=== PATIENT | female | born 1970 | race Two or more races ===

== ENCOUNTER 2021-12-19 09:08 | Inpatient (IN) | payer OTHER ==
[~2021-12-19] VITALS: Ht 157.5 cm; Wt 92.7 kg
[2021-12-19] VITALS (11 sets, daily range): BP systolic 126–156; BP diastolic 66–85
[~2021-12-19 09:08] MED LIST: BUSP15TA PO; CALC500T30 PO; CLONAZEPAM1 MG PO; DESV25TA7 PO; GABA300C18 PO; LISD10CA PO; LISI-130 PO; OMEP20CA16 PO; QUET100T2 PO
--- NOTE | 2021-12-19 09:29 | PHYS DOC ---
Past Medical History Past Medical History: Diabetes-Type II, GERD, Hypertension Additional Past Medical Histor: OSTEOARTHRITIS Past Surgical History: Appendectomy, Cholecystectomy, Tubal ligation General Adult EDM: Chief Complaint: CHEST PAIN HPI: HPI: Patient is a 51-year-old female that presents today with chest pain. Patient states the chest pain started approximately 2 weeks ago, but this morning she woke up around 730 with severe chest pain in the left chest wall that radiated to her left arm, she also had some nausea with this pain. Patient states she was seen by her primary care physician on Wednesday for evaluation of this chest pain they made some adjustments to her diabetes medication regime and said that they would follow-up with her later on if she still continue to have pain. Patient does have a past medical history of hypertension and diabetes. She does have a family history of heart disease with her mother and father both having coronary artery disease. Patient states she did have Covid approximately 1 month ago and since that time has still not been feeling well at all. Review of Systems: Review of Systems: Constitutional: Denies fever or chills. [] Eyes: Denies change in visual acuity. [] HENT: Denies nasal congestion or sore throat. [] Respiratory: shortness of breath, [] Cardiovascular: chest pain or denies edema. [] GI: nausea Denies abdominal pain, vomiting, bloody stools or diarrhea. [] : Denies dysuria. [] Musculoskeletal: Denies back pain or joint pain. [] Integument: Denies rash. [] Neurologic: Denies headache, focal weakness or sensory changes. [] Endocrine: Denies polyuria or polydipsia. [] Lymphatic: Denies swollen glands. [] Psychiatric: Denies depression or anxiety. [] Heart Score: C/O Chest Pain: Yes HEART Score for Chest Pain: HEART Score for Chest Pain Response (Comments) Value History Moderately Suspicious 1 ECG Normal 0 Age >45 - < 65 1 Risk Factors >3 Risk Factors or Hx CAD 2 Troponin < Normal Limit 0 Total 4 Risk Factors: Risk Factors: DM, Current or recent (<one month) smoker, HTN, HLP, family history of CAD, obesity. Risk Scores: Score 0 - 3: 2.5% MACE over next 6 weeks - Discharge Home Score 4 - 6: 20.3% MACE over next 6 weeks - Admit for Clinical Observation Score 7 - 10: 72.7% MACE over next 6 weeks - Early Invasive Strategies Current Medications: Current Medications Medications (Trade) Dose Ordered Sig/[facility] Start Time Stop Time Status Last Admin Dose Admin Aspirin (Aspirin Chewable) 324 mg 1X ONCE 12/19/21 09:30 12/19/21 09:31 UNV Morphine Sulfate (Morphine Sulfate) 2 mg PRN Q15MIN PRN 12/19/21 09:30 12/20/21 09:29 UNV Nitroglycerin (Nitrostat) 0.4 mg PRN Q5MIN PRN 12/19/21 09:30 12/20/21 09:29 UNV Allergies: Allergies: Allergies Coded Allergies Type Severity Reaction Last Updated Verified amoxicillin Allergy Intermediate hives 11/10/16 Yes bacitracin Allergy Intermediate 11/10/16 Yes neomycin Allergy Intermediate 11/10/16 Yes polymyxin B Allergy Intermediate 11/10/16 Yes prochlorperazine Allergy Intermediate dystonia 11/10/16 Yes Physical Exam: PE: Constitutional: Well developed, well nourished, mild distress, non-toxic appearance. [] HENT: Normocephalic, atraumatic, bilateral external ears normal, oropharynx moist, no oral exudates, nose normal. [] Eyes: PERRLA, EOMI, conjunctiva normal, no discharge. [] Neck: Normal range of motion, no tenderness, supple, no stridor. [] Cardiovascular:Heart rate regular rhythm, no murmur [] Lungs & Thorax: Bilateral breath sounds clear to auscultation [] Abdomen: Bowel sounds normal, soft, no tenderness, no masses, no pulsatile masses. [] Skin: Warm, dry, no erythema, no rash. [] Back: No tenderness, no CVA tenderness. [] Extremities: No tenderness, no cyanosis, no clubbing, ROM intact, no edema. [] Neurologic: Alert and oriented X 3, normal motor function, normal sensory function, no focal deficits noted. [] Psychologic: Affect normal, judgement normal, mood normal. [] Current Patient Data: Labs: Laboratory Tests Test 12/19/21 09:38 12/19/21 09:46 White Blood Count 6.6 x10^3/uL Red Blood Count 4.43 x10^6/uL Hemoglobin 12.5 g/dL Hematocrit 37.5 % Mean Corpuscular Volume 85 fL Mean Corpuscular Hemoglobin 28 pg Mean Corpuscular Hemoglobin Concent 33 g/dL Red Cell Distribution Width 12.9 % Platelet Count 248 x10^3/uL Neutrophils (%) (Auto) 45 % Lymphocytes (%) (Auto) 42 % Monocytes (%) (Auto) 10 % Eosinophils (%) (Auto) 3 % Basophils (%) (Auto) 1 % Neutrophils # (Auto) 3.0 x10^3/uL Lymphocytes # (Auto) 2.8 x10^3/uL Monocytes # (Auto) 0.7 x10^3/uL Eosinophils # (Auto) 0.2 x10^3/uL Basophils # (Auto) 0.0 x10^3/uL Prothrombin Time 12.2 SEC Prothromb Time International Ratio 0.9 D-Dimer (Margot) 0.33 ug/mlFEU Sodium Level 141 mmol/L Potassium Level 3.7 mmol/L Chloride Level 102 mmol/L Carbon Dioxide Level 26 mmol/L Anion Gap 13 Blood Urea Nitrogen 15 mg/dL Creatinine 0.8 mg/dL Estimated GFR (Cockcroft-Gault) 76.2 BUN/Creatinine Ratio 19 Glucose Level 93 mg/dL Calcium Level 8.9 mg/dL Magnesium Level 1.9 mg/dL Total Bilirubin 0.6 mg/dL Aspartate Amino Transf (AST/SGOT) 17 U/L Alanine Aminotransferase (ALT/SGPT) 46 U/L Alkaline Phosphatase 83 U/L Troponin I High Sensitivity 6 ng/L [id number] Natriuretic Peptide 103 pg/mL Total Protein 7.7 g/dL Albumin 3.9 g/dL Albumin/Globulin Ratio 1.0 Lipase 104 U/L Glucose (Fingerstick) 93 mg/dL Current Medications Medications (Trade) Dose Ordered Sig/Arian Route PRN Reason Start Time Stop Time Status Last Admin Dose Admin Aspirin (Aspirin Chewable) 324 mg 1X ONCE PO 12/19/21 10:00 12/19/21 10:01 DC 12/19/21 09:36 Nitroglycerin (Nitrostat) 0.4 mg PRN Q5MIN PRN SL CP RATING > 1/10 12/19/21 09:30 12/20/21 09:29 12/19/21 10:01 Morphine Sulfate (Morphine Sulfate) 2 mg PRN Q15MIN PRN IV/SQ PAIN GREATER THAN 3/10 12/19/21 09:30 12/20/21 09:29 12/19/21 10:23 Sodium Chloride 1,000 ml @ 999 mls/hr 1X ONCE IV 12/19/21 10:15 12/19/21 11:15 12/19/21 10:06 Ondansetron HCl (Zofran) 4 mg 1X ONCE IVP 12/19/21 10:30 12/19/21 10:31 DC 12/19/21 10:23 Vital Signs: Vital Signs Date Time Temp Pulse Resp B/P (MAP) Pulse Ox O2 Delivery O2 Flow Rate FiO2 12/19/21 10:26 62 14 129/79 (96) 100 Room Air 12/19/21 10:23 18 99 Room Air 12/19/21 10:17 64 28 120/72 (88) 100 Room Air 12/19/21 10:06 72 16 107/59 (75) 97 Room Air 12/19/21 10:01 67 131/75 12/19/21 10:01 66 19 119/77 (91) 98 Room Air 12/19/21 09:56 70 19 131/75 (93) 96 Room Air 12/19/21 09:51 68 26 125/72 (89) 97 Room Air 12/19/21 09:47 78 22 132/81 (98) 97 Room Air 12/19/21 09:37 71 144/82 12/19/21 09:08 98.1 71 15 144/82 (102) 99 Room Air 98.1 Vital Signs Date Time Temp Pulse Resp B/P (MAP) Pulse Ox O2 Delivery O2 Flow Rate FiO2 12/19/21 09:08 98.1 71 15 144/82 (102) 99 Room Air 98.1 EKG: EK EKG done read by Dr. Beauchamp at 917 shows sinus rhythm at a rate of 170 no ectopy [place] interval of 146 ms QTC of 474 ms no STEMI [] Radiology/Procedures: Radiology/Procedures: REASON: chest pain PROCEDURE: PORTABLE CHEST 1V XR CHEST 1V History: Chest pain Comparison: None. Technique: AP radiograph of the chest. Findings: The lungs are adequately and symmetrically inflated. No airspace consolidation, pleural effusion or pneumothorax. The cardiomediastinal silhouette and pulmonary vasculature are within normal limits. No acute osseous abnormality. Soft tissues are unremarkable. Impression: 1. No acute cardiopulmonary process. Electronically signed by: Jono Rea MD (12/19/2021 9:46 AM) [id number] [] Course & Med Decision Making: Course & Med Decision Making Pertinent Labs and Imaging studies reviewed. (See chart for details) 1045 reviewed radiological and laboratory results with Dr. Gregory the hospitalist he is agreeable to admitting the patient with a consult to cardiology for further evaluation of the patient's chest pain. Patient states her pain is a 2 out of 10 at this time. Dragon Disclaimer: Dragon Disclaimer: This electronic medical record was generated, in whole or in part, using a voice recognition dictation system. Departure Departure Impression: Primary Impression: Chest pain Qualified Codes: R07.9 - Chest pain, unspecified Disposition: ADMITTED INPATIENT Admitting Physician: SHAKIRA Condition: STABLE Referrals: DALLAS CALLAWAY (PCP) LOI BRAR APRN Dec 19, 2021 09:29
[2021-12-19] MEDS ORDERED: MORPHINE SULFATE 2 MG/ML INJ. IV/SQ PRN (09:30)
[2021-12-19] MEDS: NITROGLYCERIN SUBLINGUAL 0.4 MG BOTTLE OF 25. SL PRN ×2 (09:37→10:01)
--- NOTE | 2021-12-19 09:48 | RAD ---
XR CHEST 1V History: Chest pain Comparison: None. Technique: AP radiograph of the chest. Findings: The lungs are adequately and symmetrically inflated. No airspace consolidation, pleural effusion or p neumothorax. The cardiomediastinal silhouette and pulmonary vasculature are within normal limits. No acute osseous abnormality. Soft tissues are unremarkable. Impression: 1. No acute cardiopulmonary process. Electronically signed by: Jono Rea MD (12/19/2021 9:46 AM) [id number]
[2021-12-19 09:59] LABS: BASO % 1 % (0-3); EOS # 0.2 x10^3/uL (0.0-0.7); EOS % 3 % (0-3); HEMATOCRIT 37.5 % (36.0-47.0); HEMOGLOBIN 12.5 g/dL (12.0-15.5); LYMPH # 2.8 x10^3/uL (1.0-4.8); LYMPH % 42 % (24-48); MEAN CORPUSCULAR HEMOGLOBIN 28 pg (25-35); MEAN CORPUSCULAR HGB CONC 33 g/dL (31-37); MEAN CORPUSCULAR VOLUME 85 fL (79-100); MONO # 0.7 x10^3/uL (0.0-1.1); MONO % 10 % (0-9); NEUT % 45 % (31-73); PLATELET COUNT 248 x10^3/uL (140-400); RED BLOOD COUNT 4.43 x10^6/uL (3.50-5.40); RED CELL DISTRIBUTION WIDTH 12.9 % (11.5-14.5); WHITE BLOOD COUNT 6.6 x10^3/uL (4.0-11.0)
[2021-12-19] MEDS ORDERED: ASPIRIN CHEWABLE 81 MG TABLET. PO ONE (10:00)
[2021-12-19 10:05] LABS: PROTHROMBIN TIME PATIENT 12.2 SEC (11.7-14.0)
[2021-12-19 10:13] LABS: CALCIUM 8.9 mg/dL (8.5-10.1); CREATININE 0.8 mg/dL (0.6-1.0); GFR 76.2; POTASSIUM 3.7 mmol/L (3.5-5.1)
[2021-12-19] MEDS ORDERED: IV NORMAL SALINE 1000ML BAG 1,000 ML IV ONE (10:15)
[2021-12-19 10:18] LABS: ALBUMIN 3.9 g/dL (3.4-5.0); MAGNESIUM 1.9 mg/dL (1.8-2.4); TOTAL BILIRUBIN 0.6 mg/dL (0.2-1.0); TOTAL PROTEIN 7.7 g/dL (6.4-8.2)
[2021-12-19] MEDS ORDERED: ONDANSETRON PF 4 MG/2 ML VIAL. IVP ONE (10:30)
[2021-12-19 10:38] LABS: D-DIMER 0.33 ug/mlFEU (0.00-0.50)
--- NOTE | 2021-12-19 10:57 | PDOC2 ---
ISABEL ERNANDEZ [employer] OPERATOR 12/19/21 1057: CARDIAC CONSULT DATE OF CONSULT Date of Consult DATE: 12/19/21 TIME: 10:54 REASON FOR CONSULT Reason for Consult: Chest pain REFERRING PHYSICIAN Referring Physician: Cori SOURCE Source: Chart review, Patient HISTORY OF PRESENT ILLNESS HISTORY OF PRESENT ILLNESS This is a pleasant 51 yo female admitted for complains of chest pain. Reports that her symptoms have been happening in the last week on and off and most painful at 7 describing it as squeezing left chest discomfort radiating to jaw and left arm. Has been having PHIPPS and has been having intermittent nausea. He started ASA at home. Denies any recent falls or injury. He did have covid-19 a month ago. No fever or chills. PAST MEDICAL HISTORY Cardiovascular: HTN Pulmonary: No pertinent hx CENTRAL NERVOUS SYSTEM: Other (No pertinent history) GI: GERD Heme/Onc: No pertinent hx Hepatobiliary: No pertinent hx Psych: No pertinent hx Rheumatologic: No pertinent hx Infectious disease: No pertinent hx Endocrine: Diabetes (2) Dermatology: No pertinent hx PAST SURGICAL HISTORY Past Surgical History: Appendectomy, Cholecystectomy, Tubal Ligation FAMILY HISTORY Family History: Coronary Artery Disease (father) SOCIAL HISTORY Smoke: Quit ALCOHOL: none Drugs: None Lives: with Family CURRENT MEDICATIONS CURRENT MEDICATIONS Current Medications Medications (Trade) Dose Ordered Sig/Arian Route PRN Reason Start Time Stop Time Status Last Admin Dose Admin Aspirin (Aspirin Chewable) 324 mg 1X ONCE PO 12/19/21 10:00 12/19/21 10:01 DC 12/19/21 09:36 Nitroglycerin (Nitrostat) 0.4 mg PRN Q5MIN PRN SL CP RATING > 1/10 12/19/21 09:30 12/20/21 09:29 12/19/21 10:01 Morphine Sulfate (Morphine Sulfate) 2 mg PRN Q15MIN PRN IV/SQ PAIN GREATER THAN 3/10 12/19/21 09:30 12/20/21 09:29 12/19/21 10:23 Sodium Chloride 1,000 ml @ 999 mls/hr 1X ONCE IV 12/19/21 10:15 12/19/21 11:15 12/19/21 10:06 Ondansetron HCl (Zofran) 4 mg 1X ONCE IVP 12/19/21 10:30 12/19/21 10:31 DC 12/19/21 10:23 ALLERGIES ALLERGIES: Coded Allergies: amoxicillin (Verified Allergy, Intermediate, hives, 11/10/16) bacitracin (Verified Allergy, Intermediate, 11/10/16) neomycin (Verified Allergy, Intermediate, 11/10/16) polymyxin B (Verified Allergy, Intermediate, 11/10/16) prochlorperazine (Verified Allergy, Intermediate, dystonia, 11/10/16) ROS Review of System 14 point ROS evaluated with pertinent positives noted per HPI PHYSICAL EXAM General: Alert, Oriented X3, Cooperative, No acute distress HEENT: Atraumatic, Mucous membr. moist/pink Lungs: Clear to auscultation, Normal air movement Heart: Regular rate (SR), Normal S1, Normal S2, No murmurs Abdomen: Soft, No tenderness Extremities: No cyanosis, No edema Skin: No breakdown, No significant lesion Neuro: Normal speech, Sensation intact Psych/Mental Status: Mental status NL, Mood NL MUSCULOSKELETAL: Full range of motion without pain VITALS/I&O VITALS/I&O: Vital Signs Date Time Temp Pulse Resp B/P (MAP) Pulse Ox O2 Delivery O2 Flow Rate FiO2 12/19/21 10:26 62 14 129/79 (96) 100 Room Air 12/19/21 09:08 98.1 98.1 LABS Lab: Laboratory Tests Test 12/19/21 09:38 12/19/21 09:46 White Blood Count 6.6 x10^3/uL (4.0-11.0) Red Blood Count 4.43 x10^6/uL (3.50-5.40) Hemoglobin 12.5 g/dL (12.0-15.5) Hematocrit 37.5 % (36.0-47.0) Mean Corpuscular Volume 85 fL (79-100) Mean Corpuscular Hemoglobin 28 pg (25-35) Mean Corpuscular Hemoglobin Concent 33 g/dL (31-37) Red Cell Distribution Width 12.9 % (11.5-14.5) Platelet Count 248 x10^3/uL (140-400) Neutrophils (%) (Auto) 45 % (31-73) Lymphocytes (%) (Auto) 42 % (24-48) Monocytes (%) (Auto) 10 % (0-9) H Eosinophils (%) (Auto) 3 % (0-3) Basophils (%) (Auto) 1 % (0-3) Neutrophils # (Auto) 3.0 x10^3/uL (1.8-7.7) Lymphocytes # (Auto) 2.8 x10^3/uL (1.0-4.8) Monocytes # (Auto) 0.7 x10^3/uL (0.0-1.1) Eosinophils # (Auto) 0.2 x10^3/uL (0.0-0.7) Basophils # (Auto) 0.0 x10^3/uL (0.0-0.2) Prothrombin Time 12.2 SEC (11.7-14.0) Prothrombin Time INR 0.9 (0.8-1.1) D-Dimer (Margot) 0.33 ug/mlFEU (0.00-0.50) Sodium Level 141 mmol/L (136-145) Potassium Level 3.7 mmol/L (3.5-5.1) Chloride Level 102 mmol/L (98-107) Carbon Dioxide Level 26 mmol/L (21-32) Anion Gap 13 (6-14) Blood Urea Nitrogen 15 mg/dL (7-20) Creatinine 0.8 mg/dL (0.6-1.0) Estimated GFR (Cockcroft-Gault) 76.2 BUN/Creatinine Ratio 19 (6-20) Glucose Level 93 mg/dL (70-99) Calcium Level 8.9 mg/dL (8.5-10.1) Magnesium Level 1.9 mg/dL (1.8-2.4) Total Bilirubin 0.6 mg/dL (0.2-1.0) Aspartate Amino Transferase (AST) 17 U/L (15-37) Alanine Aminotransferase (ALT) 46 U/L (14-59) Alkaline Phosphatase 83 U/L (46-116) Troponin I High Sensitivity 6 ng/L (4-50) OV-Iyc-X-Type Natriuretic Peptide 103 pg/mL (0-124) Total Protein 7.7 g/dL (6.4-8.2) Albumin 3.9 g/dL (3.4-5.0) Albumin/Globulin Ratio 1.0 (1.0-1.7) Lipase 104 U/L (73-393) Glucose (Fingerstick) 93 mg/dL (70-99) Laboratory Tests 12/19/21 09:38 Laboratory Tests 12/19/21 09:38 ASSESSMENT/PLAN ASSESSMENT/PLAN 1. Chest pain: UA features 2. RBBB: no prior foc comparison 3. HTN: controlled 4. DM2 5. Obesity 6. ADD: takes adderall Recommendations 1. [facility] today, risks and beneifts discussed and agreeable to proceed 2. Secondary prevention measures 3. Start on heparin drip. 4. TTE, FLP CRYSTAL WATERS MD 12/19/210: CARDIAC CONSULT ASSESSMENT/PLAN ASSESSMENT/PLAN Patient was seen and examined She is feeling slightly better in the emergency room. I agree with our nurse practitioners assessment and plan. Chest pain: Features concerning for a cardiac etiology. No acute ST elevated myocardial infarction on EKG. Treating with heparin and aspirin. Risks and benefits of cardiac catheterization were discussed with the patient. She has agreed to proceed. We will cath when last space is available today. RBBB: no prior foc comparison HTN: controlled. Continue present treatment and monitor. DM2. Resume home medications. Obesity ADD: takes adderall ISABEL ERNANDEZ APRN Dec 19, 2021 10:57 CRYSTAL WATERS MD Dec 19, 2021 18:10
[2021-12-19 11:00] LABS: PREG TEST PT QUAL NEGATIVE (NEG)
--- NOTE | 2021-12-19 11:40 | PDOC1 ---
History and Physical Date of Service: DOS: DATE: 12/19/21 TIME: 11:36 Chief Complaint: Chief Complain: Chest pain. History of Present Illness: HPI: History obtained with discussion with the ED physician and chart review: 51-year-old female with past medical history of hypertension and diabetes mellitus type 2 who presents with left-sided chest pain that is pressure-like in nature and radiates to her left shoulder and left arm. Patient states that chest pain has been on and off for the past 2 weeks but this time it woke her up from sleep this morning at 730. Patient does have a family history of heart disease in her mom and father. Patient also had a Covid infection 1 month ago. Patient also has been experiencing stress due to her recent halfway from her job and also argument with . Denies fevers, shortness of breath, syncope, abdominal pain, diarrhea or palpitations. Past Medical/Surgical History: PMH/PSH: Past Medical History: Diabetes-Type II, GERD, Hypertension, OSTEOARTHRITIS Past Surgical History: Appendectomy, Cholecystectomy, Tubal ligation Allergies: Allergies: Coded Allergies: amoxicillin (Verified Allergy, Intermediate, hives, 11/10/16) bacitracin (Verified Allergy, Intermediate, 11/10/16) neomycin (Verified Allergy, Intermediate, 11/10/16) polymyxin B (Verified Allergy, Intermediate, 11/10/16) prochlorperazine (Verified Allergy, Intermediate, dystonia, 11/10/16) Family History: Family History: Reviewed with no relative findings in the chart Social History: Social History: Denies alcohol, tobacco or drug abuse Current Medications: Current Medications Current Medications Aspirin (Aspirin Chewable) 324 mg 1X ONCE PO Last administered on 12/19/21at 09:36; Start 12/19/21 at 10:00; Stop 12/19/21 at 10:01; Status DC Nitroglycerin (Nitrostat) 0.4 mg PRN Q5MIN PRN SL CP RATING > 1/10 Last administered on 12/19/21at 10:01; Start 12/19/21 at 09:30; Stop 12/20/21 at 09:29 Morphine Sulfate (Morphine Sulfate) 2 mg PRN Q15MIN PRN IV/SQ PAIN GREATER THAN 3/10 Last administered on 12/19/21at 10:23; Start 12/19/21 at 09:30; Stop 12/20/21 at 09:29 Sodium Chloride 1,000 ml @ 999 mls/hr 1X ONCE IV Last administered on 12/19/21at 10:06; Start 12/19/21 at 10:15; Stop 12/19/21 at 11:15; Status DC Ondansetron HCl (Zofran) 4 mg 1X ONCE IVP Last administered on 12/19/21at 10:23; Start 12/19/21 at 10:30; Stop 12/19/21 at 10:31; Status DC Active Scripts Active Reported Vyvanse (Lisdexamfetamine Dimesylate) 10 Mg Capsule 70 Mg PO Omeprazole 20 Mg Capsule.dr 20 Mg PO DAILY Calcium (Calcium Carbonate) 500 Mg Tablet 500 Mg PO Clonazepam 1 Mg Tablet 1 Mg PO BID Quetiapine Fumarate 100 Mg Tablet 100 Mg PO HS Pristiq ER (Desvenlafaxine Succinate) 25 Mg Tab.er.24h 100 Mg PO Lisinopril 40 Mg Tablet 40 Mg PO DAILY Gabapentin 300 Mg Capsule 300 Mg PO TID Buspirone Hcl 15 Mg Tablet 15 Mg PO BID ROS: Review of Systems Review of System REVIEW OF SYSTEMS: GENERAL: Denies weakness SKIN: No bruising, hair changes or rashes. EYES: No blurred, double or loss of vision. NOSE AND THROAT: No history of nosebleeds, hoarseness or sore throat. HEART: No history of palpitations, chest pain or shortness of breath on exertion. LUNGS: Denies cough, hemoptysis, wheezing or shortness of breath. GASTROINTESTINAL: Denies changes in appetite, nausea, vomiting, diarrhea or constipation. GENITOURINARY: No history of frequency, urgency, hesitancy or nocturia. NEUROLOGIC: Denies history of numbness, tingling, or tremor. PSYCHIATRIC: No history of panic, anxiety or depression. ENDOCRINE: No history of heat or cold intolerance, polyuria or polydipsia. EXTREMITIES: Denies joint pain, pain on walking or stiffness. Physical Exam: Vital Signs: Vital Signs Date Time Temp Pulse Resp B/P (MAP) Pulse Ox O2 Delivery O2 Flow Rate FiO2 12/19/21 10:26 62 14 129/79 (96) 100 Room Air 12/19/21 09:08 98.1 98.1 Physcial Exam: GEN: No apparent distress. Alert and oriented HEENT: Normal cephalic, atraumatic, external auditory canals are patent EYES: Extraocular muscles are intact, pupil are equally round and reactive to light and accommodation MUSCULOSKELETAL: Well developed , well nourished, good range of motion ENDOCRINE: No thyromegaly was palpated LYMPHATICS: No cervical chain or axillary nodes were noted HEMATOPOIETIC: No bruising NECK: Supple, no JVD, no thyromegaly was noted LUNGS: Clear to auscultation in all lung gentile without rhonchi or wheezing HEART: RRR, S!, S2 present. Peripheral pulses intact, no obvious murmurs noted ABDOMEN: Soft, nontender. Positive bowel sounds, no organomegaly, normal bowel sounds EXTREMITIES: Without clubbing, cyanosis, or edema. Pedal pulses intact. Negative Homans sign NEUROLOGIC: Normal speech and tone. A&O x 3, moves all extremities, no obvious focal deficits PSYCHIATRIC: Normal affect, normal mood. Stable SKIN: No ulcerations or rashes, good skin turgor, no jaundice VASCULAR: Good capillary refill, neurovascular bundle appears to be intact Labs: Labs: Laboratory Tests Test 12/19/21 09:38 12/19/21 09:46 White Blood Count 6.6 x10^3/uL (4.0-11.0) Red Blood Count 4.43 x10^6/uL (3.50-5.40) Hemoglobin 12.5 g/dL (12.0-15.5) Hematocrit 37.5 % (36.0-47.0) Mean Corpuscular Volume 85 fL (79-100) Mean Corpuscular Hemoglobin 28 pg (25-35) Mean Corpuscular Hemoglobin Concent 33 g/dL (31-37) Red Cell Distribution Width 12.9 % (11.5-14.5) Platelet Count 248 x10^3/uL (140-400) Neutrophils (%) (Auto) 45 % (31-73) Lymphocytes (%) (Auto) 42 % (24-48) Monocytes (%) (Auto) 10 % (0-9) Eosinophils (%) (Auto) 3 % (0-3) Basophils (%) (Auto) 1 % (0-3) Neutrophils # (Auto) 3.0 x10^3/uL (1.8-7.7) Lymphocytes # (Auto) 2.8 x10^3/uL (1.0-4.8) Monocytes # (Auto) 0.7 x10^3/uL (0.0-1.1) Eosinophils # (Auto) 0.2 x10^3/uL (0.0-0.7) Basophils # (Auto) 0.0 x10^3/uL (0.0-0.2) Prothrombin Time 12.2 SEC (11.7-14.0) Prothromb Time International Ratio 0.9 (0.8-1.1) D-Dimer (Margot) 0.33 ug/mlFEU (0.00-0.50) Sodium Level 141 mmol/L (136-145) Potassium Level 3.7 mmol/L (3.5-5.1) Chloride Level 102 mmol/L (98-107) Carbon Dioxide Level 26 mmol/L (21-32) Anion Gap 13 (6-14) Blood Urea Nitrogen 15 mg/dL (7-20) Creatinine 0.8 mg/dL (0.6-1.0) Estimated GFR (Cockcroft-Gault) 76.2 BUN/Creatinine Ratio 19 (6-20) Glucose Level 93 mg/dL (70-99) Calcium Level 8.9 mg/dL (8.5-10.1) Magnesium Level 1.9 mg/dL (1.8-2.4) Total Bilirubin 0.6 mg/dL (0.2-1.0) Aspartate Amino Transf (AST/SGOT) 17 U/L (15-37) Alanine Aminotransferase (ALT/SGPT) 46 U/L (14-59) Alkaline Phosphatase 83 U/L (46-116) Troponin I High Sensitivity 6 ng/L (4-50) UJ-Qxt-B-Type Natriuretic Peptide 103 pg/mL (0-124) Total Protein 7.7 g/dL (6.4-8.2) Albumin 3.9 g/dL (3.4-5.0) Albumin/Globulin Ratio 1.0 (1.0-1.7) Lipase 104 U/L (73-393) Serum Test, Qualitative Negative (NEG) Glucose (Fingerstick) 93 mg/dL (70-99) Laboratory Tests Test 12/19/21 09:38 12/19/21 09:46 White Blood Count 6.6 x10^3/uL (4.0-11.0) Red Blood Count 4.43 x10^6/uL (3.50-5.40) Hemoglobin 12.5 g/dL (12.0-15.5) Hematocrit 37.5 % (36.0-47.0) Mean Corpuscular Volume 85 fL (79-100) Mean Corpuscular Hemoglobin 28 pg (25-35) Mean Corpuscular Hemoglobin Concent 33 g/dL (31-37) Red Cell Distribution Width 12.9 % (11.5-14.5) Platelet Count 248 x10^3/uL (140-400) Neutrophils (%) (Auto) 45 % (31-73) Lymphocytes (%) (Auto) 42 % (24-48) Monocytes (%) (Auto) 10 % (0-9) Eosinophils (%) (Auto) 3 % (0-3) Basophils (%) (Auto) 1 % (0-3) Neutrophils # (Auto) 3.0 x10^3/uL (1.8-7.7) Lymphocytes # (Auto) 2.8 x10^3/uL (1.0-4.8) Monocytes # (Auto) 0.7 x10^3/uL (0.0-1.1) Eosinophils # (Auto) 0.2 x10^3/uL (0.0-0.7) Basophils # (Auto) 0.0 x10^3/uL (0.0-0.2) Prothrombin Time 12.2 SEC (11.7-14.0) Prothromb Time International Ratio 0.9 (0.8-1.1) D-Dimer (Margot) 0.33 ug/mlFEU (0.00-0.50) Sodium Level 141 mmol/L (136-145) Potassium Level 3.7 mmol/L (3.5-5.1) Chloride Level 102 mmol/L (98-107) Carbon Dioxide Level 26 mmol/L (21-32) Anion Gap 13 (6-14) Blood Urea Nitrogen 15 mg/dL (7-20) Creatinine 0.8 mg/dL (0.6-1.0) Estimated GFR (Cockcroft-Gault) 76.2 BUN/Creatinine Ratio 19 (6-20) Glucose Level 93 mg/dL (70-99) Calcium Level 8.9 mg/dL (8.5-10.1) Magnesium Level 1.9 mg/dL (1.8-2.4) Total Bilirubin 0.6 mg/dL (0.2-1.0) Aspartate Amino Transf (AST/SGOT) 17 U/L (15-37) Alanine Aminotransferase (ALT/SGPT) 46 U/L (14-59) Alkaline Phosphatase 83 U/L (46-116) Troponin I High Sensitivity 6 ng/L (4-50) UO-Nsr-T-Type Natriuretic Peptide 103 pg/mL (0-124) Total Protein 7.7 g/dL (6.4-8.2) Albumin 3.9 g/dL (3.4-5.0) Albumin/Globulin Ratio 1.0 (1.0-1.7) Lipase 104 U/L (73-393) Serum Test, Qualitative Negative (NEG) Glucose (Fingerstick) 93 mg/dL (70-99) Images: Images PROCEDURE: PORTABLE CHEST 1V XR CHEST 1V History: Chest pain Comparison: None. Technique: AP radiograph of the chest. Findings: The lungs are adequately and symmetrically inflated. No airspace consolidation, pleural effusion or pneumothorax. The cardiomediastinal silhouette and pulmonary vasculature are within normal limits. No acute osseous abnormality. Soft tissues are unremarkable. Impression: 1. No acute cardiopulmonary process. Assessment/Plan Assessment/Plan Chest pain rule out ACS History of diabetes mellitus type 2 History of hypertension History of depression/anxiety Morbid obesity Admit to hospitalist service for further management EKG with sinus rhythm at [address] elevations or depressions. QTC of 474 and AZ interval 146 MS Troponin negative x1 Continue aspirin, consider Plavix if intermediate risk will defer this to cardiology Cardiology consulted for left heart cath Continue nitroglycerin as needed for pain Continue beta-soraya if blood pressures allow Continue high intensity statins IV morphine as needed Started on heparin drip Maintain O2 sats between 88 to 95% Trend troponins Repeat EKG in the a.m. Continue telemetry monitoring Monitor for electrolyte abnormalities Avoid NSAIDs R-ISS and Accu-Cheks Justifications for Admission Other Justification URBAN CONNOLLY MD Dec 19, 2021 11:40
[2021-12-19] MEDS ORDERED: ONDANSETRON PF 4 MG/2 ML VIAL. IVP PRN (11:45)
[2021-12-19] MEDS ORDERED: HEPARIN 25,000UTS/250ML PREMIX 250 ML IV PRN (11:45)
[2021-12-19] MEDS ORDERED: ZOLPIDEM 5 MG TABLET. PO PRN (11:45)
[2021-12-19] MEDS ORDERED: DEXTROSE 50% 25 GM / 50ML DISP.SYRIN. IV PRN (11:45)
[2021-12-19] MEDS ORDERED: diphenhydrAMINE 50 MG/ML VIAL IVP PRN (11:45)
[2021-12-19] MEDS ORDERED: diphenhydrAMINE HCL 25 MG CAPSULE PO PRN ×2 (11:45)
[2021-12-19] MEDS ORDERED: SENNOSIDES 8.6 MG TABLET PO PRN (11:45)
[2021-12-19] MEDS ORDERED: HEPARIN for IV BOLUS 10,000 UNIT/10 ML VIAL. IV PRN (11:45)
[2021-12-19] MEDS ORDERED: DOCUSATE SODIUM 100 MG CAPSULE. PO PRN (11:45)
[2021-12-19] MEDS ORDERED: oxyCODONE/APAP 5/325 1 TAB TABLET PO PRN (11:45)
[2021-12-19] MEDS ORDERED: PROCHLORPERAZINE 10 MG/2 ML VIAL. IV PRN (11:45)
[2021-12-19] MEDS ORDERED: ACETAMINOPHEN 325 MG TABLET. PO PRN (11:45)
[2021-12-19] MEDS ORDERED: ENOXAPARIN 40 MG/0.4 ML SYRINGE. SQ SCH (11:45)
[2021-12-19] MEDS ORDERED: MORPHINE SULFATE 2 MG/ML INJ. IVP PRN (11:45)
[2021-12-19] MEDS ORDERED: LORazepam 0.5 MG TABLET PO PRN (11:45)
[2021-12-19] MEDS ORDERED: clonazePAM 0.5 MG TABLET PO SCH (12:00)
[2021-12-19] MEDS: INSULIN LISPRO 300 UNITS/3 ML VIAL. SQ SCH ×2 (12:00→16:24)
[2021-12-19] MEDS ORDERED: busPIRone 5 MG TABLET. PO SCH (12:00)
[2021-12-19] MEDS ORDERED: HEPARIN for IV BOLUS 10,000 UNIT/10 ML VIAL. IV ONE (12:00)
[2021-12-19] MEDS ORDERED: LISINOPRIL 20 MG TABLET PO SCH (12:00)
--- NOTE | 2021-12-19 12:06 | EKG ---
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
--- NOTE | 2021-12-19 12:07 | EKG ---
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
[2021-12-19] MEDS: MORPHINE SULFATE 2 MG/ML INJ. IV PRN ×2 (12:11→14:56)
[2021-12-19 13:53] LABS: BILIRUBIN,URINE NEGATIVE (NEG); CLARITY,URINE CLEAR; COLOR,URINE STRAW; NITRITE,URINE NEGATIVE (NEG); PROTEIN,URINE NEGATIVE (NEG-TRACE); UROBILINOGEN,URINE 0.2 mg/dL (0.2 mg/dL)
[2021-12-19 13:54] LABS: RBC,URINE 0 /HPF (0-2)
[2021-12-19 13:55] LABS: BACTERIA,URINE FEW /HPF (0-FEW)
[2021-12-19] MEDS ORDERED: GABAPENTIN 300 MG CAPSULE. PO SCH (14:00)
[2021-12-19] MEDS ORDERED: IODIXANOL 320 MG/ML 100 ML VIAL. ONE (14:38)
[2021-12-19] MEDS ORDERED: LIDOCAINE 1% PF 2 ML VIAL. ONE (14:38)
[2021-12-19] MEDS ORDERED: MIDAZOLAM HCL/PF 2 MG/2 ML VIAL. ONE (15:17)
[2021-12-19] MEDS ORDERED: HEPARIN for IV BOLUS 10,000 UNIT/10 ML VIAL. ONE (15:17)
[2021-12-19] MEDS ORDERED: fentaNYL PF VIAL 100 MCG/2 ML VIAL ONE (15:17)
[2021-12-19] MEDS ORDERED: VERAPAMIL 5 MG/2 ML VIAL. ONE (15:17)
--- NOTE | 2021-12-19 15:26 | PDOC ---
MODERATE SEDATION ASSESSMENT RISKS/ALTERNATIVES Risks/Alternatives Risks and alternatives of this type of sedation and procedure discussed with: RISK/ALTERNATIVES: Patient H & P ON CHART H & P H & P on chart and reviewed for co-morbid conditions and appropriate labs. H&P ON CHART: Yes STATUS PREG STATUS ASSESSED: N/A MEDS/ALLERGIES REVIEWED Meds/Allergies Reviewed Medications and Allergies including time and route of recently administered narcotics and sedatives. MEDS/ALLERGIES REVIEWED: Yes ASA RATING ASA RATING: II AIRWAY ASSESSMENT Airway Assessment Airway patency, oral function limitations, presence of caps, crowns, dentures, partials, and ability to extend neck assessed. AIRWAY ASSESSMENT: Yes MALLAMPATI SCORE MALLAMPATI SCORE: II PRE-SEDATION ASSESSMENT PRE-SEDATION ASSESSMENT: Yes CHRIS CASTRO MD Dec 19, 2021 15:26
[2021-12-19] MEDS ORDERED: NITROGLYCERIN 200 MCG/2 ML SYRINGE FOR CATH/VASC LAB. IART ONE (15:30)
[2021-12-19] MEDS ORDERED: fentaNYL PF VIAL 100 MCG/2 ML VIAL IV ONE (15:30)
[2021-12-19] MEDS ORDERED: LIDOCAINE 1% PF 2 ML VIAL. INJ ONE (15:30)
[2021-12-19] MEDS ORDERED: VERAPAMIL 5 MG/2 ML VIAL. IART ONE (15:30)
[2021-12-19] MEDS ORDERED: IODIXANOL 320 MG/ML 100 ML VIAL. IART ONE (15:30)
[2021-12-19] MEDS ORDERED: MIDAZOLAM HCL/PF 2 MG/2 ML VIAL. IV ONE (15:30)
[2021-12-19] MEDS ORDERED: HEPARIN for IV BOLUS 10,000 UNIT/10 ML VIAL. IART ONE (15:30)
[2021-12-19] MEDS ORDERED: IV 1/2 NORMAL SALINE 1,000 ML IV SCH (16:00)
[2021-12-19] MEDS: PANTOPRAZOLE 40 MG TABLET.DR. PO SCH (16:49)
--- NOTE | 2021-12-19 16:59 | CARD ---
MR#: [id number] Date of Study: 12/19/2021 Ordering Physician: CHRIS ISLAS, Referring Physician: CHRIS ISLAS, Tech: RT Salomón(R) APPROVED REPORT Technologist: RT Salomón(R) Nurse: Rosanna Tadeo RN Procedure(s) performed: Left heart catheterization, selective coronary angiography and left ventricul ography via right transradial approach MODERATE SEDATION 34 MIN FLUORO TIME 4.4MIN CONTRAST 106ML INDICATION The indication(s) include : unstable angina . [facility] Clinical Frailty Scale [facility] Clinical Frailty Scale: Mildly Frail Heart Failure Heart Failure: No CASE TECHNIQUE IV conscious sedation was used throughout procedure with appropriate monitoring and was performed in the presence of a registered nurse who was an independent trained observer other than the physician p erforming the procedure. During this case, Fluoroscopy and low osmolar contrast were used for imaging . Specimen(s) Removed: No Estimated Blood loss: 10 cc's. PROCEDURE NARRATIVE After explaining the risks, benefits and alternative options, informed consent was obtained from caitlyn ent. Patient was brought to the cardiac Bear Keeper and right wrist was prepped and draped in the usual fashion after confirming a positive modified Eulogio's test. Arterial access was obtained in the righ t radial artery and a 6 Turkish sheath was inserted. 6 Turkish Huan and 6 Turkish JL 3.5 catheters wer e used to perform selective angiography of the right and left coronary arteries. 6 Turkish pigtail ca theter was used to perform left ventriculography. Patient tolerated the procedure well. Hemostasis was achieved using TR band. There were no immediate complications. The following findings were note d. FINDINGS 1. Hemodynamics: Left ventricular end-diastolic pressure of 23 mmHg. No pullback gradient across th e aortic valve. 2. Left ventriculography: Normal left ventricle systolic function with ejection fraction estimated at 60%. No significant mitral regurgitation seen. 3. Coronary angiography: a. The left main coronary artery arose from the left sinus of Valsalva, gave rise to the left anteri or descending and left circumflex arteries and did not show any significant stenosis. b. The left anterior descending artery did not show any significant stenosis. c. The left circumflex artery did not show any significant stenosis. d. The right coronary artery was a large and dominant vessel arising from the right sinus of Valsalv a that did not show any significant stenosis. Conclusion 1. No significant coronary artery disease 2. Normal left ventricular systolic function with ejection fraction estimated at 60% Recommendations Cardiovascular risk factor modification Signed by : Chris Islas, Electronically Approved : 12/19/2021 16:59:01
[2021-12-19] MEDS ORDERED: DAPA10TA PO (19:20)
[2021-12-19] MEDS ORDERED: OMEP20CA16 PO (19:20)
[2021-12-19] MEDS ORDERED: METO50TA4 PO (19:20)
[2021-12-19] MEDS ORDERED: DEXT20TA24 PO (19:20)
[2021-12-19] MEDS ORDERED: TIZA-75 PO (19:20)
[2021-12-19] MEDS ORDERED: MELO15TA23 PO (19:20)
[2021-12-19] MEDS ORDERED: CYCL10TA19 PO (19:48)
[2021-12-19] MEDS ORDERED: tiZANidine 4 MG TABLET. PO PRN (20:15)
[2021-12-19] MEDS: METOPROLOL SUCC 24HR ER 50 MG TAB.ER.24H. PO SCH (20:53)
[2021-12-19] MEDS ORDERED: QUEtiapine 100 MG TABLET. PO SCH (21:00)
[2021-12-20 03:13] VITALS: BP 168/85
[2021-12-20] MEDS: PANTOPRAZOLE 40 MG TABLET.DR. PO SCH (05:32)
[2021-12-20 05:43] LABS: BASO % 0 % (0-3); EOS # 0.2 x10^3/uL (0.0-0.7); EOS % 3 % (0-3); HEMATOCRIT 34.1 % (36.0-47.0); HEMOGLOBIN 11.6 g/dL (12.0-15.5); LYMPH # 2.5 x10^3/uL (1.0-4.8); LYMPH % 41 % (24-48); MEAN CORPUSCULAR HEMOGLOBIN 29 pg (25-35); MEAN CORPUSCULAR HGB CONC 34 g/dL (31-37); MEAN CORPUSCULAR VOLUME 85 fL (79-100); MONO # 0.6 x10^3/uL (0.0-1.1); MONO % 9 % (0-9); NEUT # 2.9 x10^3/uL (1.8-7.7); NEUT % 47 % (31-73); PLATELET COUNT 228 x10^3/uL (140-400); RED BLOOD COUNT 4.02 x10^6/uL (3.50-5.40); RED CELL DISTRIBUTION WIDTH 13.3 % (11.5-14.5); WHITE BLOOD COUNT 6.1 x10^3/uL (4.0-11.0)
[2021-12-20 06:04] LABS: CALCIUM 8.6 mg/dL (8.5-10.1); CREATININE 0.7 mg/dL (0.6-1.0); GFR 88.9; MAGNESIUM 2.1 mg/dL (1.8-2.4); PHOSPHORUS 3.7 mg/dL (2.6-4.7); POTASSIUM 3.4 mmol/L (3.5-5.1)
[2021-12-20 06:15] LABS: CHOLESTEROL/HDL RATIO 3.2
[2021-12-20 07:00] VITALS: BP 119/67
[2021-12-20] MEDS: INSULIN LISPRO 300 UNITS/3 ML VIAL. SQ SCH ×2 (08:00→11:51)
[2021-12-20] MEDS: METOPROLOL SUCC 24HR ER 50 MG TAB.ER.24H. PO SCH (08:15)
[2021-12-20] MEDS ORDERED: EMPAGLIFLOZIN 25 MG TABLET. PO SCH (09:00)
--- NOTE | 2021-12-20 09:43 | PDOC ---
PROGRESS NOTES Date of Service: DATE: 12/20/21 TIME: 09:42 Subjective Subjective Chest pain improved Objective Objective Vital Signs Date Time Temp Pulse Resp B/P (MAP) Pulse Ox O2 Delivery O2 Flow Rate FiO2 12/20/21 08:15 65 119/67 12/20/21 08:00 Room Air 12/20/21 07:00 98.2 18 97 98.2 12/19/21 15:57 2.0 Intake and Output 12/20/21 07:00 Intake Total 1475 ml Balance 1475 ml Intake Oral 475 ml IV Total 1000 ml # Voids 1 Physical Exam Abdomen: Soft, No tenderness Heart: Regular rate (SR), Normal S1, Normal S2, No murmurs Extremities: No cyanosis, No edema General: Alert, Oriented X3, Cooperative, No acute distress HEENT: Atraumatic, Mucous membr. moist/pink Lungs: Clear to auscultation, Normal air movement MUSCULOSKELETAL: Full range of motion without pain Neuro: Normal speech, Sensation intact Psych/Mental Status: Mental status NL, Mood NL Skin: No breakdown, No significant lesion Assessment Assessment 1. Chest pain: Cardiac catheterization yesterday did not show any significant coronary artery disease. LVEF normal. Chest pain noncardiac and most probably GI etiology. 2. RBBB: Chronic 3. HTN: controlled 4. DM2: Treat per IM 5. Obesity 6. ADD: takes adderall Plan Plan of Care Problems Medical Problems: (1) Chest pain Status: Acute Comment Review of Relevant I have reviewed the following items rona (where applicable) has been applied. Labs Laboratory Tests Test 12/19/21 09:46 12/19/21 12:35 12/19/21 13:35 12/19/21 16:15 Glucose (Fingerstick) 93 mg/dL (70-99) 89 mg/dL (70-99) Troponin I High Sensitivity 7 ng/L (4-50) Urine Collection Type Unknown Urine Color Straw Urine Clarity Clear Urine pH 6.0 (<5.0-8.0) Urine Specific [place] 1.020 (1.000-1.030) Urine Protein Negative mg/dL (NEG-TRACE) Urine Glucose (UA) >=1000 mg/dL (NEG) Urine Ketones (Stick) Negative mg/dL (NEG) Urine Blood Negative (NEG) Urine Nitrite Negative (NEG) Urine Bilirubin Negative (NEG) Urine Urobilinogen Dipstick 0.2 mg/dL (0.2 mg/dL) Urine Leukocyte Esterase Negative (NEG) Urine RBC 0 /HPF (0-2) Urine WBC 1-4 /HPF (0-4) Urine Squamous Epithelial Cells Mod /LPF Urine Bacteria Few /HPF (0-FEW) Test 12/19/21 16:25 12/19/21 20:38 12/20/21 04:00 12/20/21 07:24 Troponin I High Sensitivity 10 ng/L (4-50) Glucose (Fingerstick) 93 mg/dL (70-99) 95 mg/dL (70-99) White Blood Count 6.1 x10^3/uL (4.0-11.0) Red Blood Count 4.02 x10^6/uL (3.50-5.40) Hemoglobin 11.6 g/dL (12.0-15.5) Hematocrit 34.1 % (36.0-47.0) Mean Corpuscular Volume 85 fL (79-100) Mean Corpuscular Hemoglobin 29 pg (25-35) Mean Corpuscular Hemoglobin Concent 34 g/dL (31-37) Red Cell Distribution Width 13.3 % (11.5-14.5) Platelet Count 228 x10^3/uL (140-400) Neutrophils (%) (Auto) 47 % (31-73) Lymphocytes (%) (Auto) 41 % (24-48) Monocytes (%) (Auto) 9 % (0-9) Eosinophils (%) (Auto) 3 % (0-3) Basophils (%) (Auto) 0 % (0-3) Neutrophils # (Auto) 2.9 x10^3/uL (1.8-7.7) Lymphocytes # (Auto) 2.5 x10^3/uL (1.0-4.8) Monocytes # (Auto) 0.6 x10^3/uL (0.0-1.1) Eosinophils # (Auto) 0.2 x10^3/uL (0.0-0.7) Basophils # (Auto) 0.0 x10^3/uL (0.0-0.2) Sodium Level 142 mmol/L (136-145) Potassium Level 3.4 mmol/L (3.5-5.1) Chloride Level 106 mmol/L (98-107) Carbon Dioxide Level 27 mmol/L (21-32) Anion Gap 9 (6-14) Blood Urea Nitrogen 11 mg/dL (7-20) Creatinine 0.7 mg/dL (0.6-1.0) Estimated GFR (Cockcroft-Gault) 88.9 Glucose Level 98 mg/dL (70-99) Calcium Level 8.6 mg/dL (8.5-10.1) Phosphorus Level 3.7 mg/dL (2.6-4.7) Magnesium Level 2.1 mg/dL (1.8-2.4) Triglycerides Level 74 mg/dL (0-150) Cholesterol Level 136 mg/dL (0-200) LDL Cholesterol, Calculated 79 mg/dL (0-100) VLDL Cholesterol, Calculated 15 mg/dL (0-40) Non-HDL Cholesterol Calculated 94 mg/dL (0-129) HDL Cholesterol 42 mg/dL (40-60) Cholesterol/HDL Ratio 3.2 Medications Current Medications Acetaminophen (Tylenol) 650 mg PRN Q4HRS PRN PO TEMP OVER 100.4F OR MILD PAIN; Start 12/19/21 at 11:45 Aspirin (Aspirin Chewable) 324 mg 1X ONCE PO Last administered on 12/19/21at 09:36; Start 12/19/21 at 10:00; Stop 12/19/21 at 10:01; Status DC Buspirone HCl (Buspar) 15 mg BID PO ; Start 12/19/21 at 12:00; Stop 12/19/21 at 19:27; Status DC Clonazepam (KlonoPIN) 1 mg BID PO ; Start 12/19/21 at 12:00; Stop 12/19/21 at 19: 27; Status DC Dextrose (Dextrose 50%-Water Syringe) 12.5 gm PRN Q15MIN PRN IV SEE COMMENTS; Start 12/19/21 at 11:45 Diphenhydramine HCl (Benadryl) 25 mg PRN Q6HRS PRN IVP ITCHING; Start 12/19/21 at 11:45 Diphenhydramine HCl (Benadryl) 25 mg PRN Q6HRS PRN PO ITCHING; Start 12/19/21 at 11:45 Diphenhydramine HCl (Benadryl) 25 mg PRN QHS PRN PO INSOMNIA, 1st CHOICE; Start 12/19/21 at 11:45 Docusate Sodium (Colace) 100 mg PRN DAILY PRN PO HARD STOOLS; Start 12/19/21 at 11:45 Empaglifozin (Jardiance) 25 mg DAILY PO Last administered on 12/20/21at 08:14; Start 12/20/21 at 09:00 Enoxaparin Sodium (Lovenox 40mg Syringe) 40 mg Q24H SQ ; Start 12/19/21 at 11:45; Status UNV Fentanyl Citrate (Fentanyl 2ml Vial) 100 mcg 1X ONCE IV Last administered on 12/19/21at 15:28; Start 12/19/21 at 15:30; Stop 12/19/21 at 15:43; Status DC Fentanyl Citrate (Fentanyl 2ml Vial) 100 mcg STK-MED ONCE .ROUTE ; Start 12/19/21 at 15:17; Stop 12/19/21 at 15:17; Status DC Gabapentin (Neurontin) 300 mg TID PO ; Start 12/19/21 at 14:00; Stop 12/19/21 at 19:27; Status DC Heparin Sodium (Porcine) (Heparin Sodium) 2,350 unit PRN Q6HRS PRN IV FOR UFH LEVEL LESS THAN 0.2; Start 12/19/21 at 11:45 Heparin Sodium (Porcine) (Heparin Sodium) 2,500 unit 1X ONCE IART Last administered on 12/19/21at 15:35; Start 12/19/21 at 15:30; Stop 12/19/21 at 15:43; Status DC Heparin Sodium (Porcine) (Heparin Sodium) 4,000 unit 1X ONCE IV Last admini stered on 12/19/21at 12:41; Start 12/19/21 at 12:00; Stop 12/19/21 at 12:01; Status DC Heparin Sodium (Porcine) (Heparin Sodium) 10,000 unit STK-MED ONCE .ROUTE ; Start 12/19/21 at 15:17; Stop 12/19/21 at 15:17; Status DC Heparin Sodium/ Dextrose 250 ml @ 10 mls/hr CONT PRN IV PER PROTOCOL; Start 12/19/21 at 11:45 Heparin Sodium/ Sodium Chloride 500 ml @ As Directed STK-MED ONCE .ROUTE ; Start 12/19/21 at 14:38; Stop 12/19/21 at 14:38; Status DC Heparin Sodium/ Sodium Chloride (HEPARIN for ARTERIAL LINE FLUSH) 1,000 unit 1X ONCE IART Last administered on 12/19/21at 15:30; Start 12/19/21 at 15:30; Stop 12/19/21 at 15:43; Status DC Heparin Sodium/ Sodium Chloride (HEPARIN for ARTERIAL LINE FLUSH) 1,000 unit 1X ONCE IART Last administered on 12/19/21at 15:30; Start 12/19/21 at 15:30; Stop 12/19/21 at 15:43; Status DC Insulin Human Lispro (HumaLOG) 0-7 UNITS TIDWMEALS SQ ; Start 12/19/21 at 12:00 Iodixanol (Visipaque 320) 100 ml 1X ONCE IART Last administered on 12/19/21at 15:51; Start 12/19/21 at 15:30; Stop 12/19/21 at 15:43; Status DC Iodixanol (Visipaque 320) 100 ml STK-MED ONCE .ROUTE ; Start 12/19/21 at 14:38; Stop 12/19/21 at 14:38; Status DC Lidocaine HCl (Xylocaine-Mpf 1% 2ml Vial) 2 ml 1X ONCE INJ Last administered on 12/19/21at 15:34; Start 12/19/21 at 15:30; Stop 12/19/21 at 15:43; Status DC Lidocaine HCl (Xylocaine-Mpf 1% 2ml Vial) 2 ml STK-MED ONCE .ROUTE ; Start 12/19/21 at 14:38; Stop 12/19/21 at 14:38; Status DC Lisinopril (Prinivil) 40 mg DAILY PO ; Start 12/19/21 at 12:00; Stop 12/19/21 at 19:27; Status DC Lorazepam (Ativan Inj) 0.25 mg PRN Q4HRS PRN IV ANXIETY / AGITATION; Start 12/19/21 at 11:45 Lorazepam (Ativan) 0.5 mg PRN Q6HRS PRN PO ANXIETY / AGITATION; Start 12/19/21 at 11:45 Metoprolol Succinate (Toprol Xl) 50 mg DAILY PO Last administered on 12/20/21at 08:15; Start 12/19/21 at 21:00 Midazolam HCl (Versed) 2 mg 1X ONCE IV Last administered on 12/19/21at 15:28; Start 12/19/21 at 15:30; Stop 12/19/21 at 15:43; Status DC Midazolam HCl (Versed) 2 mg STK-MED ONCE .ROUTE ; Start 12/19/21 at 15:17; Stop 12/19/21 at 15:17; Status DC Morphine Sulfate (Morphine Sulfate) 1 mg PRN Q1HR PRN IV PAIN Last administered on 12/19/21at 14:56; Start 12/19/21 at 11:45 Morphine Sulfate (Morphine Sulfate) 2 mg PRN Q2HR PRN IVP SEVERE PAIN 7-10; Start 12/19/21 at 11:45; Stop 12/20/21 at 11:44 Nitroglycerin (Nitroglycerin) 200 mcg 1X ONCE IART Last administered on 12/19/21at 15:35; Start 12/19/21 at 15:30; Stop 12/19/21 at 15:43; Status DC Ondansetron HCl (Zofran) 4 mg 1X ONCE IVP Last administered on 12/19/21at 10:23; Start 12/19/21 at 10:30; Stop 12/19/21 at 10:31; Status DC Ondansetron HCl (Zofran) 4 mg PRN Q6HRS PRN IVP NAUSEA/VOMITING, 1st CHOICE; Start 12/19/21 at 11:45 Oxycodone/ Acetaminophen (Percocet 5/325) 1 tab PRN Q4HRS PRN PO MILD PAIN, 1ST CHOICE; Start 12/19/21 at 11:45 Pantoprazole Sodium (Protonix) 40 mg DAILYAC PO Last administered on 12/20/21at 05:32; Start 12/19/21 at 12:00 Prochlorperazine Edisylate (Compazine) 10 mg PRN Q6HRS PRN IV NAUSEA/VOMITING, 2nd CHOICE; Start 12/19/21 at 11:45; Status Cancel Quetiapine Fumarate (SEROquel) 100 mg HS PO ; Start 12/19/21 at 21:00; Stop 12/19/21 at 19:27; Status DC Sennosides (Senna) 17.2 mg PRN BID PRN PO CONSTIPATION; Start 12/19/21 at 11:45 Sodium Chloride 1,000 ml @ 60 mls/hr [id number] IV Last administered on 12/19/21at 16:50; Start 12/19/21 at 16:00 Sodium Chloride 1,000 ml @ 999 mls/hr 1X ONCE IV Last administered on 12/19/21at 10:06; Start 12/19/21 at 10:15; Stop 12/19/21 at 11:15; Status DC Tizanidine HCl (Zanaflex) 4 mg PRN TID PRN PO MUSCLE SPASMS; Start 12/19/21 at 20:15 Verapamil HCl (Verapamil) 2.5 mg 1X ONCE IART Last administered on 12/19/21at 15:35; Start 12/19/21 at 15:30; Stop 12/19/21 at 15:43; Status DC Verapamil HCl (Verapamil) 5 mg STK-MED ONCE .ROUTE ; Start 12/19/21 at 15:17; Stop 12/19/21 at 15:18; Status DC Zolpidem Tartrate (Ambien) 2.5 mg PRN QHS PRN PO INSOMNIA, 2nd CHOICE; Start 12/19/21 at 11:45 Vitals/I & O Vital Sign - Last 24 Hours 12/19/21 12/19/21 12/19/21 12/19/21 09:47 09:51 09:56 10:01 Pulse 78 68 70 66 Resp 22 26 19 19 B/P (MAP) 132/81 (98) 125/72 (89) 131/75 (93) 119/77 (91) Pulse Ox 97 97 96 98 O2 Delivery Room Air Room Air Room Air Room Air 12/19/21 12/19/21 12/19/21 12/19/21 10:01 10:06 10:17 10:23 Pulse 67 72 64 Resp 16 28 18 B/P (MAP) 131/75 107/59 (75) 120/72 (88) Pulse Ox 97 100 99 O2 Delivery Room Air Room Air Room Air 12/19/21 12/19/21 12/19/21 12/19/21 10:26 10:41 10:56 11:00 Pulse 62 64 66 Resp 14 19 21 17 B/P (MAP) 129/79 (96) 123/75 (91) 124/77 (93) Pulse Ox 100 98 100 99 O2 Delivery Room Air Room Air Room Air Room Air 12/19/21 12/19/21 12/19/21 12/19/21 11:26 11:41 11:57 12:11 Pulse 70 70 67 Resp 17 20 18 20 B/P (MAP) 139/82 (101) 134/84 (101) 134/78 (96) Pulse Ox 100 100 100 99 O2 Delivery Room Air Room Air Room Air Room Air 12/19/21 12/19/21 12/19/21 12/19/21 12:26 12:41 13:36 14:04 Pulse 68 68 74 70 Resp 21 18 25 18 B/P (MAP) 131/80 (97) 132/85 (101) 124/73 (90) 120/72 (88) Pulse Ox 98 99 98 97 O2 Delivery Room Air Room Air Room Air Room Air 12/19/21 12/19/21 12/19/21 12/19/21 14:34 14:56 15:04 15:28 Pulse 72 66 Resp 15 18 19 15 B/P (MAP) 118/75 (89) 135/77 (96) Pulse Ox 97 98 99 O2 Delivery Room Air Room Air Room Air 12/19/21 12/19/21 12/19/21 12/19/21 15:35 15:57 16:24 16:45 Temp 98.5 98.5 Pulse 75 66 60 64 Resp 16 18 B/P (MAP) 126/66 (86) 137/76 (96) Pulse Ox 100 100 O2 Delivery Nasal Cannula O2 Flow Rate 2.0 12/19/21 12/19/21 12/19/21 12/19/21 17:16 17:31 17:46 18:00 Pulse 65 70 68 67 B/P (MAP) 139/75 (96) 134/73 (93) 151/82 (105) 156/82 (106) 12/19/21 12/19/21 12/19/21 12/19/21 18:30 18:45 19:17 20:00 Temp 97.6 97.6 Pulse 69 62 60 Resp 18 B/P (MAP) 148/85 (106) 152/79 (103) 152/79 (103) Pulse Ox 99 O2 Delivery Room Air Room Air 12/19/21 12/19/21 12/20/21 12/20/21 20:53 23:06 03:13 07:00 Temp 99.2 98.6 98.2 99.2 98.6 98.2 Pulse 82 65 70 65 Resp 18 16 18 B/P (MAP) 152/79 146/74 (98) 168/85 (112) 119/67 (84) Pulse Ox 97 97 97 O2 Delivery Room Air Room Air Room Air 12/20/21 12/20/21 08:00 08:15 Pulse 65 B/P (MAP) 119/67 O2 Delivery Room Air Intake and Output 12/19/21 12/19/21 12/20/21 15:00 23:00 07:00 Intake Total 1000 ml 475 ml 0 ml Balance 1000 ml 475 ml 0 ml CHRIS CASTRO MD Dec 20, 2021 09:43
[2021-12-20 11:00] VITALS: BP 131/71
[2021-12-20] MEDS ORDERED: POTASSIUM CHLORIDE 20 MEQ TABLET.ER. PO ONE (12:15)
--- NOTE | 2021-12-20 13:50 | NUR ---
Discharge Note: AMY LUND N 6 [facility] Discharge instructions and discharge home medications reviewed with Patient and a copy given. All questions have been answered and understanding verbalized. The following instructions and handouts were given: discharge instructions, follow ups, post cath & CP education Discontinued lines and drains: Peripheral IV intact. Patient discharged to Home or Self Care with Family Member via Wheelchair at 1350.
--- NOTE | 2021-12-20 15:03 | DS ---
DATE OF DISCHARGE: 12/20/2021 ADMISSION DIAGNOSIS: Chest pain. DISCHARGE DIAGNOSIS: Atypical chest pain, suspect gastrointestinal. CONSULTS: Cardiology. PROCEDURES: Cardiac catheterization, which was clean. HOSPITAL COURSE: The patient is a pleasant, middle-aged female who presented with chest pain. We consulted Cardiology. She was taken for cardiac cath. I discussed the cath results with Dr. Islas this morning. He is okay with her going home. States that the catheter was pretty much clean, suspect this may have been GI related. We will plan to discharge. DISPOSITION: Home. ACTIVITY: As tolerated. DIET: Low sodium. DISCHARGE MEDICATIONS: Please see the MRAD. Cyclobenzaprine 10 a day, Farxiga 10 a day, amphetamine salt, meloxicam 15 a day, metoprolol 50 daily, omeprazole 20 a day, tizanidine 4 t.i.d. TOTAL TIME: 32 minutes. KAREN/[facility] DR: Ben TID: [id number]
--- NOTE | 2021-12-20 19:04 | EKG ---
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
== END 2021-12-20 13:50 | disposition home or self-care (01) | DRG 286 ==
LOC: ER 09:08 → 2 NORTH 10:45 → 6 SOUTH 14:48
PROVIDERS: ADMIT Internal Medicine; ATTEND Internal Medicine
PROC: B2111ZZ Fluoroscopy of Multiple Coronary Arteries using Low Osmolar Contrast (ICD-10-PCS; principal; 2021-12-19)
PROC: B2151ZZ Fluoroscopy of Left Heart using Low Osmolar Contrast (ICD-10-PCS; 2021-12-19)
PROC: 4A023N7 Measurement of Cardiac Sampling and Pressure, Left Heart, Percutaneous Approach (ICD-10-PCS; 2021-12-19)
DX: R07.89 Other chest pain (principal); I50.31 Acute diastolic (congestive) heart failure; K21.9 Gastro-esophageal reflux disease without esophagitis; E11.9 Type 2 diabetes mellitus without complications; E66.01 Morbid (severe) obesity due to excess calories; Z68.37 Body mass index [BMI] 37.0-37.9, adult; I10 Essential (primary) hypertension; I45.10 Unspecified right bundle-branch block; Z82.49 Family history of ischemic heart disease and other diseases of the circulatory system; Z90.49 Acquired absence of other specified parts of digestive tract; F32.A Depression, unspecified; F41.9 Anxiety disorder, unspecified; M19.90 Unspecified osteoarthritis, unspecified site; Z98.51 Tubal ligation status; Z88.1 Allergy status to other antibiotic agents; Z88.8 Allergy status to other drugs, medicaments and biological substances; I11.0 Hypertensive heart disease with heart failure
CPT/HCPCS: 93458; 96361; 96374; 96375; 96376; 99285; G0269; 36415; 71045; 80048; 80053; 80061; 81001; 82962; 83690; 83735; 83880; 84100; 84484; 84703; 85025; 85379; 85610; 93005; 99152; 99153; C1894; J1644; J1815; J2250; J2270; J2405; J3010; J3490; J7030; Q9967; G0378